=== PATIENT | female | born 1950 | race Caucasian/White ===

== ENCOUNTER 2020-01-31 22:42 | Emergency (ER) | payer BC, OTHER ==
[~2020-01-31] VITALS: Ht 154.9 cm; Wt 79.4 kg
[2020-01-31 23:05] VITALS: Ht 154.9 cm; Wt 79.4 kg
[2020-02-01 00:23] VITALS: BP 171/80
== END 2020-02-01 00:23 | disposition home or self-care (01) ==
LOC: ED 22:42
DX: M54.41 Lumbago with sciatica, right side (principal); I10 Essential (primary) hypertension; Z88.5 Allergy status to narcotic agent
CPT/HCPCS: J1885